=== PATIENT | male | born 1990 ===

== ENCOUNTER 2022-03-18 10:25 | Outpatient (CLI) | payer BC | END 2022-03-18 10:26 | disposition home or self-care (01) | LOC: CSHLAB 10:25 | PROVIDERS: ATTEND Internal Medicine Gastroenterology | DX: Z20.822 Contact with and (suspected) exposure to COVID-19 (principal); K62.5 Hemorrhage of anus and rectum | CPT/HCPCS: 87811 ==

== ENCOUNTER 2022-03-20 06:03 | Day surgery (SDC) | payer BC ==
[2022-03-18 16:11] VITALS: BMI 36.1
[2022-03-20] MEDS ORDERED: Lidocaine 1% MPF 2 ML VIAL ONE (06:53)
[2022-03-20] MEDS ORDERED: PROPOFOL 40 ML ONE (07:06)
[2022-03-20] MEDS ORDERED: Lidocaine 2% PF 100 mg/5 ml Syringe ONE (07:07)
[2022-03-20] MEDS ORDERED: Midazolam HCl 2 mg/2 ml Vial ONE (07:45)
[2022-03-20] MEDS ORDERED: Glycopyrrolate 0.2 MG/ML 5 ML SYRINGE ONE (07:57)
[2022-03-20] MEDS ORDERED: PROPOFOL 20 ML ONE (08:00)
[2022-03-20] MEDS ORDERED: Meperidine HCl/PF 25 MG/ML VIAL ONE (08:04)
== END 2022-03-20 09:20 | disposition home or self-care (01) ==
LOC: CSHSDC 06:03
PROVIDERS: ATTEND Internal Medicine Gastroenterology
PROC: 0DJD8ZZ Inspection of Lower Intestinal Tract, Via Natural or Artificial Opening Endoscopic (ICD-10-PCS; principal; 2022-03-20)
DX: K57.31 Diverticulosis of large intestine without perforation or abscess with bleeding (principal); K64.9 Unspecified hemorrhoids; Z20.822 Contact with and (suspected) exposure to COVID-19
CPT/HCPCS: J2001; J2175; J2250; J2704